=== PATIENT | male | born 1980 | race Hispanic/Latino ===

== ENCOUNTER 2016-10-19 23:00 | Inpatient (IN) | payer MEDICAID ==
[2016-10-19 23:21] VITALS: RESP 20
--- NOTE | 2016-10-19 23:42 | C.PDOC ---
History Of Present Illness 36 y/o male transferred from [place] for admission on depression disorder. Patient states he had a situation earlier this week that made him feel depressed but says it is gone now. At ed patient is requesting to go home but cannot be discharged until evaluated by a psychiatrist. Patient denies suicidal ideation, fever, chills or any other complaints at this time. Patient has had prior psych admissions. Time Seen by Provider: 10/19/16 23:27 Chief Complaint (Nursing): Psychiatric Evaluation History Per: Patient History/Exam Limitations: no limitations Onset/Duration Of Symptoms: Days Current Symptoms Are (Timing): Still Present Suicide/Self Injury Attempted (Context): None Associated Symptoms: Depression Past Medical History Reviewed: Historical Data, Nursing Documentation, Vital Signs Vital Signs: Last Vital Signs Temp 98 F 10/19/16 23:12 Pulse 92 H 10/19/16 23:12 Resp 20 10/19/16 23:12 BP 111/78 10/19/16 23:12 Pulse Ox 98 10/19/16 23:45 - Medical History PMH: Depression Family History: States: No Known Family Hx - Social History Hx Alcohol Use: No Hx Substance Use: No - Immunization History Hx Tetanus Toxoid Vaccination: No Hx Influenza Vaccination: No Hx Pneumococcal Vaccination: No Review Of Systems Except As Marked, All Systems Reviewed And Found Negative. Constitutional: Negative for: Fever, Chills Skin: Negative for: Rash Psych: Positive for: Depression. Negative for: Anxiety, Suicidal ideation Physical Exam - Physical Exam Appears: No Acute Distress Skin: Normal Color, Warm Head: Atraumatic, Normacephalic Oral Mucosa: Moist Cardiovascular: Rhythm Regular, No Murmur Respiratory: Normal Breath Sounds, No Rales, No Rhonchi, No Wheezing Gastrointestinal/Abdominal: Soft, No Tenderness, No Guarding, No Rebound Extremity: Normal ROM, Capillary Refill (<2 seconds) Neurological/Psych: Oriented x3, Normal Speech, Normal Cognition ED Course And Treatment O2 Sat by Pulse Oximetry: 98 (RA) Pulse Ox Interpretation: Normal Disposition - Disposition Disposition: HOSPITALIZED Disposition Time: 23:49 Condition: STABLE - POA Present On Arrival: None - Clinical Impression Clinical Impression: Moderate major depression, single episode - Scribe Statement The provider has reviewed the documentation as recorded by the Scribcarmen Grady All medical record entries made by the Scribe were at my direction and personally dictated by me. I have reviewed the chart and agree that the record accurately reflects my personal performance of the history, physical exam, medical decision making, and the department course for this patient. I have also personally directed, reviewed, and agree with the discharge instructions and disposition.
[2016-10-19 23:55] VITALS: O2SAT 100
--- NOTE | 2016-10-20 00:25 | PCM.BM ---
<MariluzDaniel - Last Filed: 10/20/16 00:23> Treatment Plan Problems - Problems identified on initial assessmt Problem 1 Date Initiated: 10/19/16 Time Initiated: 00:23 Assessment reference: NA Status: Active Problem 2 Date Initiated: 10/19/16 Time Initiated: 00:24 Assessment reference: NA Status: Active Problem 3 Date Initiated: 10/19/16 Time Initiated: 00:25 Assessment reference: NA Status: Active Comment: Using Heroin 2bags daily by IV, + for MJ and alcohol Treatment assets and liabiliti Patient Assests: cooperative, self-reliant, ADL independent Patient Liabilities: financial problems, poor support system, relationship conflicts, substance abuse (Lives in an apartment with a friend.) - Milieu Protocol Maintain good personal hygiene: daily Encourage regular showers, daily Remind patient to perform daily oral care, daily Assist patient to perform ADL's Maintain personal safety: every shift Educate patient to report safety concerns to staff, every shift Monitor environment for contraband/sharps Medication safety: Monitor for expected outcome, potential side effects: every shift, Assess barriers to learning: every shift, Assess readiness for medication education: every shift <Myesha Carter - Last Filed: 10/20/16 11:26> - Diagnosis (1) Moderate major depression, single episode Status: Acute Interventions: 10/20/16 11:26 Attend groups Take meds (2) Opioid use disorder, severe, dependence Status: Acute Interventions: 10/20/16 11:27 Attend groups Take meds <Karolina Queen - Last Filed: 10/20/16 11:30> Family Contact Family involvement: Christopher/SO not involved Family contact: Patient declines to allow family contact at present - Goals for Treatment Patient goals for treatment: "I want to go home." Discharge/Continuing Care - Education Needs Education Needs: Patient Medication, Patient Coping Skills, Patient Community resources - Discharge Discharge Criteria: Tolerates medication w/o severe side effects, No longer exhibiting s/s of withdrawal Discharge to:: Home - Treatment Team Participation Patient/Family/SO Statement: 10/20/16 11:29 "I'm fine to go home. I have to go back to work." Discussed with Family/SO: Yes Was Patient/Family/SO present at Treatment Team Meeting: No
[2016-10-20 07:52] VITALS: TEMP 97.9
--- NOTE | 2016-10-20 11:25 | PCM.PSYCH ---
Initial Psychiatric Evaluation - Initial Psychiatric Evaluation Type of Admission: Voluntary Legal Status: Capacity Chief Complaint (in patient's own words): "I'm don't want to kill myself" History of Present Illness and Precipitating Events: Patient seen and evaluated with medical student present. 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 Patient has a history of Depression and Anxiety, presents as a transfer from [facility]. Patient states that he has been job hunting and interviewing but can't seem to get a call back for employment. Patient states that he feels depressed because he's 36 years old and not where he wants to be in life. Patient felt overwhelmed and admitted himself to [facility]. Patient states that he has been treated by a psychiatrist, previously. Patient reports being diagnosed with ADHD, Depression and Anxiety, and was treated with Adderall and Xanax. Patient reports that, in 2008, his psychiatrist moved to [place] without notice and he hasn't been treated since. Patient states he would like to go back on Adderall as it was very helpful for his focus. Patient denies having difficulty sleeping. Patient reports that he has been coping by "trying not to us drugs". Patient reports using Heroin since 26 years old, 1-2 bags/day, 1-2x per week and daily cannabis use - dime bag/day. Patient plans to resume treatment outpatient by attending [facility] @ [place] 2x/week and NA meetings 1x/week. Past MedHx:Denies Past PsycHx: see HPI Substance Use: see HPI Alcohol: 1 drink with a shot, 1-2x/week Tobacco: 1/2 pack/ day Allergies: Denies Fam PsycHx:denies Fam Substance Use: Brother- alcohol Current Medications: Active Medications Generic Name Dose Route Start Last Admin Trade Name Freq PRN Reason Stop Dose Admin Haloperidol 5 mg 10/20/16 08:40 Haldol PO Q1H PRN agitation max 4x/24h Hydroxyzine HCl 50 mg 10/20/16 08:40 Atarax PO Q6H PRN Anxiety Ibuprofen 600 mg 10/20/16 08:40 Motrin Tab PO Q6H PRN Pain, moderate (4-7) Quetiapine Fumarate 100 mg 10/19/16 23:45 10/20/16 00:07 Seroquel PO 100 mg HS DOLORES Administration Trazodone HCl 100 mg 10/19/16 23:45 10/20/16 00:07 Desyrel PO 100 mg HS DOLORES Administration Past Psychiatric History - Past Psychiatric History Previous Treatment History: None Pertinent Medical Hx (Current Medical&Sleep Prob, Allergies): Allergies Allergy/AdvReac Type Severity Reaction Status Date / Time No Known Allergies Allergy Unverified 10/19/16 23:17 Review of Systems - Review of Systems All systems: reviewed and no additional remarkable complaints except - Psychiatric Psychiatric: Anxiety, Depression, Irritability Mental Status Examination - Personal Presentation Personal Presentation: Looks stated age - Affect Affect: Constricted, Depressed - Motor Activity Motor Activity: Calm - Reliability in Providing Information Reliability in Providing Information: Good - Speech Speech: Organized - Mood Mood: Depressed, Anxious - Formal Thought Process Formal Thought Process: No Impairment - Obsessions/Compulsions Obsessions: No Compulsions: No - Cognitive Functions Orientation: Person, Place, Situation, Time Sensorium: Alert Attention/Concentration: Attentive Abstract Thinking: Lamont Estimate of Intelligence: Below average Judgement: Imparied, as evidence by: Poor judgement, Imparied, as evidence by: Lack of insight into illness - Risk Risk: Suicidal, Diminished functioning - Strength & Assets Inventory Strength & Assets Inventory: Education - Limitations Limitations: Living alone DSM 5 DX - DSM 5 DSM 5 Diagnosis: Major depressive disorder recurrent moderate Opiate use disorder severe - Recommended/Plan of Treatment Treatment Recommendations and Plan of Treatment: Major depressive disorder recurrent moderate Opiate use disorder severe CBT Psychoeducation Supportive therapy, group therapy, individual therapy Zoloft 50 mg daily Neurontin 100 mg by mouth 3 times a day Trazodone 50 mg by mouth daily at bedtime Opioid: CBT Psychoeducation Supportive therapy, individual therapy Use NV for abstinence
[2016-10-20 14:51] VITALS: BP 98/63; PULSE 115
--- NOTE | 2016-10-20 17:21 | PCM.PYCHDC ---
Mental Status Examination - Mental Status Examination Orientation: Person, Place, Situation, Time Memory: Intact Mood: Neutral Affect: Constricted Speech: Soft Attention: WNL Concentration: WNL Association: WNL Fund of Knowledge: WNL Formal Thought Process: No Impairment Description of patient's judgement and insight: partially impaired Psychotic Thoughts and Behaviors: denies any AVH Suicidal Ideation: No Current Homicidal Ideation?: No Discharge Summary - Discharge Note Reason for Hospitalization: Patient seen and evaluated with medical student present. 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 Patient has a history of Depression and Anxiety, presents as a transfer from [facility]. Patient states that he has been job hunting and interviewing but can't seem to get a call back for employment. Patient states that he feels depressed because he's 36 years old and not where he wants to be in life. Patient felt overwhelmed and admitted himself to [facility]. Patient states that he has been treated by a psychiatrist, previously. Patient reports being diagnosed with ADHD, Depression and Anxiety, and was treated with Adderall and Xanax. Patient reports that, in 2008, his psychiatrist moved to [place] without notice and he hasn't been treated since. Patient states he would like to go back on Adderall as it was very helpful for his focus. Patient denies having difficulty sleeping. Patient reports that he has been coping by "trying not to us drugs". Patient reports using Heroin since 26 years old, 1-2 bags/day, 1-2x per week and daily cannabis use - dime bag/day. Patient plans to resume treatment outpatient by attending [facility] @ [place] 2x/week and NA meetings 1x/week. Consultations:: List each consultation separately and include: 1. Reason for request. 2. Findings. 3. Follow-up Summary of Hospital Course include:: 1. Description of specific treatment plan utilized for patients during their course of treatmen. 2. Summarize the time- course for resolution of acute symptoms and/or regressed behaviors. 3. Describe issues identified and worked on during hospitalization. 4. Describe medication utilized. 5. Describe medical problems identified and treated. 6. Reassessment of suicide risk Summary of Hospital Course: patient stated that he came here last night, since then he is getting medications and now he is feeling better. He signed AMA and denied any feelings of hopelessness, helplessness, and worthlessness, denied any problem with the sleep or appetite, denied suicidal ideation or homicidal ideation. Pt denied any auditory or visual hallucinations. 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 - Diagnosis (1) Moderate major depression, single episode Status: Acute (2) Opioid use disorder, severe, dependence Status: Acute - Final Diagnosis (DSM 5) Condition upon Discharge: STABLE DSM 5: Major depressive disorder recurrent moderate Opiate use disorder severe Disposition: AGAINST MEDICAL ADVICE Follow-up Treatment Plan: Major depressive disorder recurrent moderate Opiate use disorder severe - Smoking Cessation Smoking Cessation Medication prescribed: No - Antipsychotic Medications Pt discharged on 2 or more routine antipsychotic medications: No
== END 2016-10-20 14:09 | disposition left against medical advice (07) | DRG 430 ==
LOC: C.ER 23:00 → C.5E 23:28
PROVIDERS: ADMIT Psychiatry & Neurology Psychiatry; ATTEND Psychiatry & Neurology Psychiatry
PROC: HZ52ZZZ Individual Psychotherapy for Substance Abuse Treatment, Cognitive-Behavioral (ICD-10-PCS; principal; 2016-10-19)
PROC: GZHZZZZ Group Psychotherapy (ICD-10-PCS; 2016-10-19)
PROC: HZ59ZZZ Individual Psychotherapy for Substance Abuse Treatment, Supportive (ICD-10-PCS; 2016-10-19)
PROC: HZ56ZZZ Individual Psychotherapy for Substance Abuse Treatment, Psychoeducation (ICD-10-PCS; 2016-10-19)
DX: F33.1 Major depressive disorder, recurrent, moderate (principal); F11.20 Opioid dependence, uncomplicated; F41.9 Anxiety disorder, unspecified; F17.210 Nicotine dependence, cigarettes, uncomplicated; R45.1 Restlessness and agitation; F12.10 Cannabis abuse, uncomplicated; Z72.89 Other problems related to lifestyle